=== PATIENT | female | born 1995 | race Caucasian/White ===

== ENCOUNTER 2020-05-17 10:09 | Emergency (ER) | payer BC, SELFPAY ==
--- NOTE | 2020-05-17 10:21 | ED.URI ---
HPI - URI/Sore Throat General Chief Complaint: Upper Respiratory Infection Stated Complaint: upper respiratory infection Time Seen by Provider: 05/17/20 10:21 Source: patient and RN notes reviewed History of Present Illness HPI Narrative: Patient is a 24-year-old female who presents the urgent care with complaints of postnasal drainage, bilateral ear pain, stuffiness and some mild chills. Patient states that she is used Sudafed, Benadryl and a decongestant. States that she is from [place] and is boarding a flight later this afternoon and wants to be sure she is not contagious . Patient states that she is not used to the local allergies and feels her symptoms are related to weather. States that they started yesterday and denies of any in contact with Covid or strep positive individuals. Denies of any nausea or vomiting. No other acute complaints. No acute distress noted. Patient aware of the plan of care. Some parts of this dictation were generated by voice recognition software and may contain typographical and/or grammatical inaccuracies. Related Data Home Medications Medication Instructions Recorded Confirmed lamotrigine [Lamictal] 100 mg PO DAILY 05/17/20 05/17/20 lamotrigine [Lamictal] 150 mg PO DAILY 05/17/20 05/17/20 Allergies Allergy/AdvReac Type Severity Reaction Status Date / Time No Known Allergies Allergy Verified 05/17/20 10:29 Review of Systems Review of Systems: Narrative: CONSTITUTIONAL: Reports of mild chills EYES: Denies visual changes, redness, or discharge. ENT: Reports of congestion, mild sore throat, otalgia and postnasal drainage CARDIOVASCULAR: Denies chest pain, palpitations, or edema. RESPIRATORY: Denies cough or dyspnea. GASTROINTESTINAL: Denies abdominal pain, nausea, vomiting, or diarrhea. GENITOURINARY: Denies dysuria or hematuria. SKIN: Denies rash or itching. MUSCULOSKELETAL: Denies back pain, joint pain, or myalgia. NEUROLOGIC: Denies headache, numbness, or weakness. All other systems reviewed are negative, except as documented in HPI. [facility] Social History Social History Gender identity (if verbalized by the patient): Female Comments At the time of my signature, I reviewed and agree with the nursing past medical, surgical, social, and family history. There is no relevant family history pertinent to the patient complaint. Exam Narrative: Exam Narrative: GENERAL: This is a well-nourished, well-developed patient, in no apparent distress. HEAD: normocephalic, atraumatic. EYES: PERRL. Sclera clear/white. Vision is grossly intact. EARS: External ears normal, auditory canals clear and without drainage, very mild fluid noted behind right TM without otitis, TMs normal without perforation. Hearing grossly intact. NOSE: External nose normal with no obvious nasal discharge, nares without redness, clear rhinorrhea. THROAT: Mucous membranes moist, posterior pharynx clear. Mild postnasal drainage NECK: Neck supple, non-tender without lymphadenopathy CARDIOVASCULAR: Regular rate and rhythm without murmurs, gallops, or rubs. RESPIRATORY: Clear to auscultation. Breath sounds equal bilaterally. No wheezes, rales, or rhonchi. SKIN: warm, intact with no suspicious lesions or rash, good texture and turgor. NEURO: awake, alert, and oriented to person, place and time. There were no obvious focal neurologic abnormalities. EXTREMITIES: No clubbing, cyanosis, or edema. Course Vital Signs Vital signs: Vital Signs Temperature 99 F 05/17/20 10:27 Pulse Rate 117 H 05/17/20 10:27 Respiratory Rate 20 05/17/20 10:27 Blood Pressure 156/81 H 05/17/20 10:27 Pulse Oximetry 100 05/17/20 10:27 Temperature 99 F 05/17/20 10:27 Pulse Rate 117 H 05/17/20 10:27 Respiratory Rate 20 05/17/20 10:27 Blood Pressure 156/81 H 05/17/20 10:27 Pulse Oximetry 100 05/17/20 10:27 Reviewed-patient is informed that they may have pre-hypertension or hypertension based on a blood pressure readin
[2020-05-17 10:27] VITALS: BP 156/81; PULSE 117; RESP 20; TEMP 37.2; O2SAT 100
== END 2020-05-17 10:45 | disposition home or self-care (01) ==
PROVIDERS: Emergency Provider Nurse Practitioner Family
DX: J02.0 Streptococcal pharyngitis (principal); G40.909 Epilepsy, unspecified, not intractable, without status epilepticus
CPT/HCPCS: 87804; 87880; 99203; G0463